=== PATIENT | female | born 1935 | race Two or more races ===

== ENCOUNTER 2019-07-07 20:43 | Inpatient (IN) | payer MEDICARE, BC ==
[~2019-07-07] VITALS: Ht 165.1 cm; Wt 59.2 kg
--- NOTE | 2019-07-07 20:55 | NUR ---
PT BIBRA C/O UNWITNESSED SYNCOPAL EPISODE. PT DENIES HEAD INJURY. PT UNABLE TOR RECALL FULL DETAILS OF THE EVENT. PT AAOX4, HR 42 NOTED, PLACED ON PACER PADS, MD MADE AWARE. PT ENDORSES SOB. RR EVEN AND UNLABORED ON RA W NAD NOTED. PT CONNECTED TO THE MANAGER CASE MANAGEMENT AND POX
[2019-07-07] MEDS ORDERED: FURO-144 PO (20:56)
--- NOTE | 2019-07-07 21:00 | NUR ---
DR LIMA AT BEDSIDE
[2019-07-07 21:11] LABS: BASOPHILS # (AUTO) 0.2 /CMM (0.0-0.2); BASOPHILS % (AUTO) 1.5 % (0.0-2.0); EOSINOPHILS % (AUTO) 0.2 % (0.0-6.0); HEMATOCRIT 41 % (33-45); HEMOGLOBIN 13.2 g/dL (11.5-14.8); LYMPHOCYTES # (AUTO) 0.7 /CMM (0.8-4.8); LYMPHOCYTES % (AUTO) 5.1 % (20.0-44.0); MEAN CORPUSCULAR HGB CONC 32 g/dl (31.0-36.0); MEAN CORPUSCULAR VOLUME 95 fL (82-100); MONOCYTES # (AUTO) 0.5 /CMM (0.1-1.30); MONOCYTES % (AUTO) 3.7 % (2.0-12.0); NEUTROPHILS # (AUTO) 12.6 /CMM (1.8-8.9); NEUTROPHILS % (AUTO) 89.5 % (43.0-81.0); PLATELET COUNT (AUTO) 228 /CMM (150-450); WHITE BLOOD COUNT (AUTO) 14.1 K/uL (4.3-11.0)
--- NOTE | 2019-07-07 21:15 | NUR ---
SPOKED TO ESTELITA WHITE PT'S DAUGHTER FOR UPDATE [phone]
[2019-07-07 21:19] LABS: CALCIUM, SERUM 9.7 mg/dL (8.5-10.1); CARBON DIOXIDE 25 mmol/L (21-32); CHLORIDE 105 mmol/L (98-107); GLUCOSE 144 mg/dL (74-106); POTASSIUM 3.5 mmol/L (3.5-5.1); SODIUM SERUM 144 mmol/L (136-145); UREA NITROGEN, BLOOD 21 mg/dL (7-18)
--- NOTE | 2019-07-07 21:20 | NUR ---
PT IS WHEELED TO CT SCAN VIA ALS PROTOCOL.
[2019-07-07 21:25] LABS: ALANINE AMINOTRANSFERASE 87 U/L (12-78); ALBUMIN 3.5 g/dL (3.4-5.0); ALKALINE PHOSPHATASE 121 U/L (46-116); ASPARTATE AMINOTRANSFERASE 71 U/L (15-37); BILIRUBIN,DIRECT 0.2 mg/dL (0.0-0.2); BILIRUBIN,TOTAL 0.6 mg/dL (0.2-1.0); TOTAL PROTEIN, SERUM 6.6 g/dL (6.4-8.2)
--- NOTE | 2019-07-07 21:25 | NUR ---
XRAY TKN AT RADIOLOGY
--- NOTE | 2019-07-07 21:30 | NUR ---
CALLED RONDA PAGED CAROLYNE ORTIZ
--- NOTE | 2019-07-07 21:31 | NUR ---
ICU 256
--- NOTE | 2019-07-07 21:37 | NUR ---
TROPONIN 0.986 MD MADE AWARE
[2019-07-07] MEDS ORDERED: ASPIRIN 325 MG TABLET ONE (21:57)
[2019-07-07] MEDS ORDERED: ASPIRIN 325 MG TABLET PO SCH (22:00)
--- NOTE | 2019-07-07 22:10 | NUR ---
CONSENT SIGNED FOR TRANSVENOUS PACING. Addendum: 07/07/19 at 2211 by GORDON CONSENT OBTAINED FROM PT FOR TRANSVENOUS PACING
--- NOTE | 2019-07-07 22:18 | NUR ---
DR GRAJEDA AT BEDSIDE
--- NOTE | 2019-07-07 23:08 | NUR ---
PT TRANSFERRED TO ICU 257 IN STABLE CONDITION
[2019-07-07] MEDS ORDERED: MORPHINE SULFATE INJ 4 MG/ML DISP.SYRIN ONE (23:44)
--- NOTE | 2019-07-07 23:53 | NUR ---
SENIOR DATA QUALITY ANALYST. RECEIVED THE PT FROM ER VIA GURAFTAB, PT IS AWAKE, ALERT. FOLLOW COMMANDS. CARPENTER SUPERVISOR SHOWING HEART BLOCK. PT ON ROOM AIR SAT 98%. NO ACUTE DISTRESS NOTED. IV RT HAND 20G. SALINE LOCK. HOB ELEVATED, RT FINGERS SHOWING SHARP BLISTERS OPEN. .SEND THE PT TO OR FOR PACEMAKER PLACEMENT.
[2019-07-08] VITALS (51 sets, daily range): BP systolic 89–164; BP diastolic 32–115
--- NOTE | 2019-07-08 01:09 | NUR ---
SOCIAL SERVICES MANAGER RECEIVED THE PT FROM OR VIS BED, S/P TRANSVENOUS PACEMAKER. RATE IS 80. RT LEG DO NOT BEND.PROCEDURE DONE VIA RT FEMORAL. PLAN TOMORROW PERMANENT PACEMAKER PLACEMENT. VITALS STABLE. WILL CONTINUE TO MONITOR
[2019-07-08] MEDS ORDERED: IV NS 0.9% 1,000 ML IV PRN (01:41)
[2019-07-08] MEDS ORDERED: TEMAZEPAM 15 MG CAPSULE PO PRN (02:00)
[2019-07-08] MEDS ORDERED: ONDANSETRON HCL/PF 4 MG/2 ML VIAL IVP PRN (02:00)
[2019-07-08] MEDS ORDERED: Z GUARD REMEDY 2 OZ OINT TP PRN (02:00)
[2019-07-08] MEDS ORDERED: CEFTRIAXONE 1 G VIAL ONE (03:25)
[2019-07-08] MEDS: CEFTRIAXONE 1 G in IV D5W 50 ML IV SCH (03:27)
--- NOTE | 2019-07-08 04:11 | NUR ---
DATA SERVICES DEVELOPER. PT SLEPT WELL. DURING SHIFT. NO ACUTE DISTRESS NOTED. SAT WITH ROOM AIR. 96%.PARAPROFESSIONAL EDUCATION ASSISTANT SHOWING V PACING. SURGICAL SITE CLEAN AND DRY. NO BLEEDING NOTED. HOB ELEVATED. RT LEG FLAT. NPO. AFTER BREAKFAST. AFEBRILE. WILL CONTINUE TO MONITOR VITALS,
[2019-07-08 04:53] LABS: BASOPHILS % (AUTO) 0.2 % (0.0-2.0); HEMATOCRIT 35 % (33-45); HEMOGLOBIN 12.2 g/dL (11.5-14.8); LYMPHOCYTES # (AUTO) 1.1 /CMM (0.8-4.8); LYMPHOCYTES % (AUTO) 11.8 % (20.0-44.0); MEAN CORPUSCULAR HGB CONC 35 g/dl (31.0-36.0); MEAN CORPUSCULAR VOLUME 98 fL (82-100); MONOCYTES # (AUTO) 0.4 /CMM (0.1-1.30); PLATELET COUNT (AUTO) 207 /CMM (150-450); RED BLOOD CELL COUNT(AUTO) 3.56 MIL/uL (4.0-5.2); WHITE BLOOD COUNT (AUTO) 9.5 K/uL (4.3-11.0)
[2019-07-08 05:07] LABS: CHOLESTEROL 165 mg/dL (<200); HDL CHOLESTEROL 64 mg/dL (40-60); LDL 90 mg/dL (0-99); TRIGLYCERIDES 36 mg/dL (30-150)
[2019-07-08 05:21] LABS: ALBUMIN 3.1 g/dL (3.4-5.0); BILIRUBIN,TOTAL 0.6 mg/dL (0.2-1.0); CALCIUM, SERUM 8.6 mg/dL (8.5-10.1); CREATININE 0.8 mg/dL (0.6-1.3); MAGNESIUM 1.9 mg/dL (1.8-2.4); POTASSIUM 3.5 mmol/L (3.5-5.1); TOTAL PROTEIN, SERUM 5.9 g/dL (6.4-8.2)
[2019-07-08] MEDS: ENOXAPARIN SODIUM 40 MG/0.4 ML DISP.SYRIN SQ SCH (06:36)
--- NOTE | 2019-07-08 06:40 | NUR ---
INSTALLATION MANAGER. WOUND PICTURE TAKEN. .WOUND CONSULTATION ORDERED
--- NOTE | 2019-07-08 07:08 | NUR ---
LOVENOX NOT GIVEN . TODAY SURGERY
[2019-07-08] MEDS: ASPIRIN EC 81 MG TABLET.DR PO SCH (08:21)
[2019-07-08] MEDS ORDERED: MIRT7.5T10 PO (08:27)
[2019-07-08] MEDS ORDERED: DICL100G34 TD (08:27)
[2019-07-08] MEDS ORDERED: ALPR0.255 PO (08:27)
--- NOTE | 2019-07-08 08:36 | NUR ---
WOUND CARE CONSULT: LIMITED ASSESSMENT TODAY DUE TO PT UNABLE TO BE TURNED AT THIS TIME. RT INDEX FINGER HEALING BURN NOTED. PT STATES WAS USING ANTIBIOTIC OINTMENT AT HOME. RECOMMENDATIONS MADE FOR WOUND CARE AND SKIN PROTECTION. DISCUSSED WITH NURSING STAFF. PT TO BE TURNED AND REPOSITIONED EVERY 2 HRS PT CONDITION PERMITS. WILL SEE PRN. CURRENT LENY SCORE IS 15. MD IN AGREEMENT WITH PLAN OF CARE. Addendum: 07/08/19 at 0838 by CHRISTOPHER CORNELL WNDNU Amended: Links added.
[2019-07-08] MEDS: NEOMY SULF/BACITRAC ZN/POLY 15 GM TUBE TP SCH ×2 (09:00→17:00)
[2019-07-08] MEDS ORDERED: IOHEXOL 240MG/ML 50 ML IV ONE (13:31)
[2019-07-08] MEDS ORDERED: LIDOCAINE HCL/MPF 1% 30 ML VIAL IJ ONE (13:32)
[2019-07-08] MEDS ORDERED: ANESTHESIA TRAY IN PYXIS 1 EA TRAY MC ONE (13:33)
[2019-07-08] MEDS ORDERED: VANCOMYCIN HCL 1 GM in IV D5W 260 ML IV ONE (14:00)
[2019-07-08] MEDS ORDERED: CEFAZOLIN 1 GM ONE ×2 (15:42→16:35)
[2019-07-08 17:01] LABS: APPEARANCE,URINE CLEAR (CLEAR); BILIRUBIN,URINE NEGATIVE (NEGATIVE); BLOOD, URINE MODERATE Ery/uL (NEGATIVE); COLOR,URINE YELLOW (YELLOW); KETONES,URINE 15 (NEGATIVE); LEUKOCYTE ESTERASE ,URINE NEGATIVE (NEGATIVE); NITRITE, URINE NEGATIVE (NEGATIVE); PROTEIN,URINE 100 mg/dl (NEGATIVE); UGLUCOSE NEGATIVE (NEGATIVE); UROBILINOGEN,URINE 0.2 EU/dL (0.2)
[2019-07-08 17:07] LABS: BACTERIA,URINE Few /HPF (None Seen); HYALINE CASTS, URINE Few /LPF (None Seen); RBC,URINE 21-50 /HPF (0-2); SQUAMOUS EPITHELIAL CELL,UR Few /HPF (None Seen); WBC,URINE 0-2 /HPF (0-3)
[2019-07-08] MEDS ORDERED: FENTANYL PF 100MCG/2ML AMPUL ONE (18:03)
[2019-07-08] MEDS ORDERED: MIDAZOLAM HCL 2 MG/2ML VIAL IV ONE (19:00)
--- NOTE | 2019-07-08 19:24 | NUR ---
DEPUTY FIRE MARSHAL closing Received patient back from surgery, s/p L CW pacemaker + temp pace maker removal. Oriented to self only, previously was x4. Attached to 3L O2 via face mask. post pacemaker, xray showed pneumothorax. Dr. Amin thoracic surgery and Dr. Dominique electrophysiology at bedside. Consent for chest tube obtained from Sneha, patient's daughter. Patient tolerated chest tube insertion. See vitals. Post chest tube insertion xray ordered. Sand bag on R groin. Post op orders endorsed to night RN. Patient placed in restraints due to active pulling. Addendum: 07/08/19 at 1933 by MAURY BISHOP RN chest tube attached to continuous suction. working. no bubbling
--- NOTE | 2019-07-08 19:30 | NUR ---
RN OPENING NOTE: Received pt in bed s/p left CW pacemaker. A&Ox1. On 3L/min O2 via face mask. Has chest tube placed in left chest. On bilateral SWR for safety. Has IV site on right hand #20 and left hand #20 w/ NS running at 60cc/hr. Lines patent and flushed. Dressings c/d/i. Has sandbag on R groin. Safety measures in place. Will continue to monitor.
[2019-07-08 21:06] LABS: BASOPHILS % (AUTO) 0.1 % (0.0-2.0); HEMATOCRIT 33 % (33-45); LYMPHOCYTES # (AUTO) 0.7 /CMM (0.8-4.8); LYMPHOCYTES % (AUTO) 4.9 % (20.0-44.0); MEAN CORPUSCULAR HGB CONC 34 g/dl (31.0-36.0); MEAN CORPUSCULAR VOLUME 98 fL (82-100); MONOCYTES # (AUTO) 0.8 /CMM (0.1-1.30); MONOCYTES % (AUTO) 5.2 % (2.0-12.0); NEUTROPHILS # (AUTO) 13.5 /CMM (1.8-8.9); NEUTROPHILS % (AUTO) 89.8 % (43.0-81.0); PLATELET COUNT (AUTO) 182 /CMM (150-450); RED BLOOD CELL COUNT(AUTO) 3.33 MIL/uL (4.0-5.2); WHITE BLOOD COUNT (AUTO) 15.1 K/uL (4.3-11.0)
[2019-07-08] MEDS: ACETAMINOPHEN 325 MG TABLET PO PRN (22:20)
[2019-07-09] VITALS (46 sets, daily range): BP systolic 115–170; BP diastolic 47–129
--- NOTE | 2019-07-09 01:29 | NUR ---
RN NOTE: Scott Lozada QUALITY CONTROL COORDINATOR at bedside. Pt A&Ox4, removed restraints, monitoring. Pt's BP noted at 170/70. Received order for Hydralazine 25mg PO Q4H PRN. Orders noted and carried out. order desk caller pharmacy called to verify order.
[2019-07-09] MEDS: hydrALAZINE HCL 25 MG TABLET PO PRN (01:47)
[2019-07-09] MEDS: CEFTRIAXONE 1 G in IV D5W 50 ML IV SCH (02:37)
[2019-07-09 04:31] LABS: BASOPHILS % (AUTO) 0.2 % (0.0-2.0); HEMATOCRIT 30 % (33-45); HEMOGLOBIN 10.1 g/dL (11.5-14.8); LYMPHOCYTES % (AUTO) 7.5 % (20.0-44.0); MEAN CORPUSCULAR HGB CONC 34 g/dl (31.0-36.0); MEAN CORPUSCULAR VOLUME 99 fL (82-100); MONOCYTES # (AUTO) 0.9 /CMM (0.1-1.30); MONOCYTES % (AUTO) 6.7 % (2.0-12.0); NEUTROPHILS # (AUTO) 11.4 /CMM (1.8-8.9); NEUTROPHILS % (AUTO) 85.6 % (43.0-81.0); PLATELET COUNT (AUTO) 172 /CMM (150-450); RED BLOOD CELL COUNT(AUTO) 3.05 MIL/uL (4.0-5.2); WHITE BLOOD COUNT (AUTO) 13.3 K/uL (4.3-11.0)
[2019-07-09 04:50] LABS: CREATININE 0.8 mg/dL (0.6-1.3); MAGNESIUM 1.9 mg/dL (1.8-2.4); PHOSPHORUS 3.2 mg/dL (2.5-4.9); POTASSIUM 3.7 mmol/L (3.5-5.1)
[2019-07-09 05:07] LABS: THYROID STIMULATING HORMONE 0.4 uIU/mL (0.358-3.74)
--- NOTE | 2019-07-09 07:13 | NUR ---
RN CLOSING NOTE: Pt resting in bed. A&Ox4. Removed restraints during shift. On 3L/min NC tolerating well. On tele monitor showing V pacing. Chest tube patent and draining. IV sites patent and flushed. Dressings c/d/i. Safety measures in place. Endorsed to AM nurse for MARIA DEL CARMEN.
[2019-07-09] MEDS ORDERED: DICLOFENAC TOPICAL 100 GM GEL..GM. TP PRN (08:00)
[2019-07-09] MEDS ORDERED: ALPRAZOLAM 0.25 MG TABLET PO PRN (08:00)
--- NOTE | 2019-07-09 08:00 | NUR ---
ICU/RN INITIAL NOTES,AM RECEIVED WRITTEN REPORT FROM NIGHT NURSE. PT ALERT, AWAKE, ORIENTED, FOLLOWS COMMANDS. PT ON ROOM AIR, NO DISTRESS NOTED. S/P LCW PACEMAKER AND LEFT SIDED CHEST TUBE TO WATER SEAL. OUTPUT NOTED, WILL DOCUMENT. PT ON TELE, VPACING. SKIN INTACT, PT CONTINENT ON DIAPER NOW. PIV'S PATENT AND INTACT, IVF INFUSING ORDERED. ALL NEEDS WILL BE ATTENDED TO, SAFETY MEASURES TAKEN, BED IN LOW POSITION, SIDE RAILS UP, CALL LIGHT WITHIN REACH. WILL CONTINUE CARE.
[2019-07-09] MEDS: ENOXAPARIN SODIUM 40 MG/0.4 ML DISP.SYRIN SQ SCH (08:18)
[2019-07-09] MEDS: ASPIRIN EC 81 MG TABLET.DR PO SCH (08:18)
[2019-07-09] MEDS: FUROSEMIDE 40 MG TABLET PO SCH (08:19)
[2019-07-09] MEDS: NEOMY SULF/BACITRAC ZN/POLY 15 GM TUBE TP SCH ×2 (08:20→17:03)
[2019-07-09] MEDS: ACETAMINOPHEN 325 MG TABLET PO PRN ×2 (08:26→12:59)
--- NOTE | 2019-07-09 09:20 | NUR ---
ICU/RN: AT BEDSIDE. PT ASSESSED. ALL QUESTIONS ANSWERED. PER MD PT IS TO STAY IN ICU OVERNIGHT FOR CLOSE MONITORING OF LEFT CW PACEMAKER AND LEFT CHEST TUBE. WILL CONTINUE TO MONITOR AND ASSESS.
--- NOTE | 2019-07-09 10:45 | NUR ---
ICU/RN: PHYSICAL THERAPY AT BEDSIDE. PT SITTING UP, DANGLED LEGS. TOLERATING WELL WILL CONTINUE
--- NOTE | 2019-07-09 14:20 | NUR ---
ICU/RN: PER CHEST XRAY CHEST TUBE KINKED. , AND AWARE. NO NEW ORDERS. OUTPUT NOTED, NO BUBBLING/AIR LEAK
--- NOTE | 2019-07-09 18:48 | NUR ---
ICU/RN: ENDING NOTES,AM WRITTEN REPORT PREPARED FOR IMPREGNATOR RN. PT ALERT, AWAKE, FOLLOWS COMMANDS. ON ROOM AIR, NO DISTRESS. VPACING ON TELE, PERMANENT PACEMAKER PLACES YESTERDAY. LEFT CHEST TUBE IN PLACE 90ML OUTPUT NOTED DURING SHIFT. SOME PAIN/TINGLING NOTED IN LEFT ARM, MDS AWARE. XRAY, VENOUS STUDY AND US NEGATIVE. PT ABLE TO USE BEDPAN, CONTINENT. ALL NEEDS ATTENDED TO,SAFETY MEASURES TAKEN, BED IN LOW POSITION, SIDE RAILS UP, CALL LIGHT WITHIN REACH. BED BATH GIVEN, LINENS CHANGED. WILL CONTINUE CARE. PT ON CLEAR LIQUID DIET, WILL ADVANCE TOLERATED.
--- NOTE | 2019-07-09 20:00 | NUR ---
Received patient A/OX4.VSS.SR with occasional V-paced Rhythm.S/P PPM placement left upper chest for complete heart block.Dressing clean dry and intact.Respiration even and unlabored on RA saturation 93%-96%.Left Chest tube for pneumothorax at 20 cm continuous suction draining serosanguineous output.No air leaks.Denies chest Safety precaution maintained with call light at bedside.Continue monitoring.
[2019-07-09] MEDS: MIRTAZAPINE 15 MG TABLET PO SCH (21:35)
[2019-07-10] VITALS (20 sets, daily range): BP systolic 117–171; BP diastolic 49–97
[2019-07-10] MEDS: CEFTRIAXONE 1 G in IV D5W 50 ML IV SCH (02:01)
--- NOTE | 2019-07-10 04:00 | NUR ---
Patient confused trying to get out of bed pulled out BP cuff,Pulse ox and gown off. Patient verbalized wants to call her mother and wants to get out of here.Wants to talk to her doctor.Explained to patient that its only 0400 in the morning and the doctor will be here at 0800 this morning.Asked help from Kvng matta RN to have patient situated in bed.Explained to patient that she can not get out of bed for she has a chest tube connected to suction and cannot lift her left arm.She has a new permanent pacemaker placed 2 days ago.Once situated in bed gave her cell phone to call her family. Instead she called 911 and told the police that she is held against her will.Explained to police inspector that patient is confused and updated of patient status.Patient reoriented multiple times of place time and situation why she is here.Fall precaution maintained. Bed low,locked,side rails up x3.Bed alarm on,call light at bedside.Closely monitored.
--- NOTE | 2019-07-10 04:30 | NUR ---
Patient pulled out her diaper and throw it to the floor.Reminded patient that she cannot do that we are observing infection control.
[2019-07-10] MEDS: hydrALAZINE HCL 25 MG TABLET PO PRN ×2 (05:08→11:12)
--- NOTE | 2019-07-10 05:08 | NUR ---
Patient BP 170/85 offered Apresoline tab po but refused.Resting in bed in no acute distress.
--- NOTE | 2019-07-10 07:14 | NUR ---
Patient resting on no acute distress.VSS.SR.Incontinent of urine and ask bedpan. Perineal hygiene done and linens changed.Repositioned to comfort.Endorsed to day shift for continuity of care.
--- NOTE | 2019-07-10 07:15 | NUR ---
HEMATOLOGIST OPENING NOTES RECEIVED PATIENT IN BED, A/O X4. VERBALLY RESPONSIVE AND ABLE TO MAKE NEEDS KNOWN. DENIES ANY PAIN BUT STATED OF FEELING SORE ON L ARM. ON ROOM AIR, TOLERATING WELL. NO SOB NOTED. IV ACCESS ON R AC NOT INTACT,WILL REMOVED. L FOREARM, INTACT, PATENT AND FLUSHED WELL. CHEST TUBE PRESENT, DRAINING SEROSANGUINEOUS OUTPUT. NO AIR LEAKS. SAFETY MEASURES IN PLACE, CALL LIGHT WITHIN REACH. WILL CONTINUE TO MONITOR.
[2019-07-10] MEDS: ASPIRIN EC 81 MG TABLET.DR PO SCH (08:20)
[2019-07-10] MEDS: FUROSEMIDE 40 MG TABLET PO SCH (08:20)
[2019-07-10] MEDS: ENOXAPARIN SODIUM 40 MG/0.4 ML DISP.SYRIN SQ SCH (08:50)
[2019-07-10] MEDS: NEOMY SULF/BACITRAC ZN/POLY 15 GM TUBE TP SCH ×2 (09:32→17:15)
--- NOTE | 2019-07-10 10:35 | NUR ---
MEDICAL STAFF CREDENTIALING COORDINATOR NOTES DR HALEY AT BEDISED, DISCUSSED PLAN OF CARE WITH PATIENT AND CHEST TUBE WAS REMOVED BY MD AND ORDERED STAT CXR.
--- NOTE | 2019-07-10 11:49 | NUR ---
HEAD BUTLER NOTES INFORMED DR BARRIGA REGARDING THE RECOMMENDATION OF DR HARRELL THAT PT IS OK TO TRANSFER TO TELE BUT PER DR BARRIGA TO LET DR. MARTINES DECIDE. CHARGE NURSE MADE AWARE.
[2019-07-10] MEDS ORDERED: ZOLPIDEM TARTRATE 5 MG TABLET PO PRN (17:30)
--- NOTE | 2019-07-10 18:00 | NUR ---
INSURANCE COMMISSIONER NOTES REPORT GIVEN TO ANMOL KELLEY IN MEDSURG/TELE . PT WILL BE IN ROOM 311-2
--- NOTE | 2019-07-10 18:45 | NUR ---
CERTIFIED FLIGHT INSTRUCTOR NOTES TRANSFERRED PT VIA ACLS PROTOCOL. V/S STABLE, IN NO APPARENT DISTRESS NOTED. ENDORSED TO RN NINMYRTLE. HANDS OFF.
--- NOTE | 2019-07-10 19:06 | NUR ---
QUALITY ASSURANCE MONITOR FINAL NOTES PATIENT RECEIVED AWAKE AND ALERT X4, NO RESPIRATORY DISTRESS, NO C/O PAIN AT THIS TIME. GAVE ONCOMING NURSE REPORT OF TRANSFER FROM ICU.
--- NOTE | 2019-07-10 19:10 | NUR ---
TUBE SPLICER PM OPENING NOTES REPORT RECIEVED FROM GWEN COREA. PATIENT RECEIVED AWAKE AND ALERT X4, NO RESPIRATORY DISTRESS, NO C/O PAIN AT THIS TIME. TELE APPLIED. VITAL SIGNS TO BE TAKEN BY TRIPOLER PER ROUTINE TIME. PATIENT IS SR IN THE 80S NO VISIBLE CAPTURE OF PACEMAKER. DENIES DISTRESS. OR SOB. WILL CONT TO MONITOR.
[2019-07-10 21:19] LABS: BASOPHILS # (AUTO) 0.1 /CMM (0.0-0.2); BASOPHILS % (AUTO) 0.6 % (0.0-2.0); EOSINOPHILS % (AUTO) 0.2 % (0.0-6.0); HEMATOCRIT 27 % (33-45); HEMOGLOBIN 9.1 g/dL (11.5-14.8); LYMPHOCYTES % (AUTO) 20.8 % (20.0-44.0); MEAN CORPUSCULAR HGB CONC 33 g/dl (31.0-36.0); MEAN CORPUSCULAR VOLUME 95 fL (82-100); MONOCYTES % (AUTO) 10.5 % (2.0-12.0); NEUTROPHILS # (AUTO) 6.6 /CMM (1.8-8.9); NEUTROPHILS % (AUTO) 67.9 % (43.0-81.0); PLATELET COUNT (AUTO) 172 /CMM (150-450); RED BLOOD CELL COUNT(AUTO) 2.87 MIL/uL (4.0-5.2); WHITE BLOOD COUNT (AUTO) 9.8 K/uL (4.3-11.0)
[2019-07-10] MEDS: MIRTAZAPINE 15 MG TABLET PO SCH (21:35)
[2019-07-10 22:04] LABS: CALCIUM, SERUM 7.8 mg/dL (8.5-10.1); CREATININE 0.7 mg/dL (0.6-1.3); MAGNESIUM 1.8 mg/dL (1.8-2.4); PHOSPHORUS 1.9 mg/dL (2.5-4.9)
[2019-07-10 22:08] LABS: POTASSIUM 2.4 mmol/L (3.5-5.1)
[2019-07-10] MEDS: POTASSIUM CHLORIDE 20 MEQ TAB.PRT.SR PO SCH (23:06)
[2019-07-11] VITALS: BP 145/84
[2019-07-11] MEDS: POTASSIUM CHLORIDE 20 MEQ TAB.PRT.SR PO SCH (01:21)
[2019-07-11 04:00] VITALS: BP 141/69
--- NOTE | 2019-07-11 07:01 | NUR ---
TUGBOAT OPERATOR PM CLOSING NOTES PATIENT IN BED AWAKEAND ALERT ORIENTED X4, REPORTS SHE WAS ABLE TO GET SOME SLEEP LAST NIGHT. DENIES FEELING DIZZY. PT IN NO RESPIRATORY DISTRESS ON RA, NO C/O PAIN AT THIS TIME. PATIENT IS SR IN THE 80S NO VISIBLE CAPTURE OF PACEMAKER. DENIES DISTRESS. OR SOB. WILL ENDORSE TO DAY SHIFT FOR MARIA DEL CARMEN.
--- NOTE | 2019-07-11 07:30 | NUR ---
PT RECEIVED RESTING COMFORTABLY IN BED WITH EYES CLOSED. NO S/S OR C/O PAIN OR DISTRESS NOTED. SIDE RAILS UP X2, CALL LIGHT LEFT WITHIN REACH. WILL CONTINUE PLAN OF CARE.
[2019-07-11] MEDS: ENSURE ENLIVE CHOC 237 ML CAN PO SCH ×2 (08:00→18:03)
[2019-07-11 08:10] VITALS: BP 157/71
[2019-07-11] MEDS: FUROSEMIDE 40 MG TABLET PO SCH (08:59)
[2019-07-11] MEDS: ASPIRIN EC 81 MG TABLET.DR PO SCH (08:59)
[2019-07-11] MEDS: ENOXAPARIN SODIUM 40 MG/0.4 ML DISP.SYRIN SQ SCH (09:00)
[2019-07-11] MEDS: NEOMY SULF/BACITRAC ZN/POLY 15 GM TUBE TP SCH ×2 (09:01→18:05)
[2019-07-11 09:12] LABS: BASOPHILS # (AUTO) 0.1 /CMM (0.0-0.2); BASOPHILS % (AUTO) 0.6 % (0.0-2.0); EOSINOPHILS % (AUTO) 1.3 % (0.0-6.0); HEMATOCRIT 27 % (33-45); HEMOGLOBIN 9.8 g/dL (11.5-14.8); LYMPHOCYTES # (AUTO) 1.5 /CMM (0.8-4.8); LYMPHOCYTES % (AUTO) 17.3 % (20.0-44.0); MEAN CORPUSCULAR HGB CONC 36 g/dl (31.0-36.0); MEAN CORPUSCULAR VOLUME 98 fL (82-100); MONOCYTES # (AUTO) 0.8 /CMM (0.1-1.30); MONOCYTES % (AUTO) 9.4 % (2.0-12.0); NEUTROPHILS # (AUTO) 6.1 /CMM (1.8-8.9); NEUTROPHILS % (AUTO) 71.4 % (43.0-81.0); PLATELET COUNT (AUTO) 186 /CMM (150-450); RED BLOOD CELL COUNT(AUTO) 2.79 MIL/uL (4.0-5.2); WHITE BLOOD COUNT (AUTO) 8.5 K/uL (4.3-11.0)
[2019-07-11 09:20] LABS: CALCIUM, SERUM 8.2 mg/dL (8.5-10.1); CREATININE 0.6 mg/dL (0.6-1.3); PHOSPHORUS 1.6 mg/dL (2.5-4.9); POTASSIUM 3.4 mmol/L (3.5-5.1)
[2019-07-11] MEDS ORDERED: K PHOS NEUTRAL 250 MG TABLET PO ONE (13:00)
[2019-07-11 16:03] VITALS: BP 121/58
[2019-07-11] MEDS: ACETAMINOPHEN 325 MG TABLET PO PRN (18:01)
--- NOTE | 2019-07-11 19:00 | NUR ---
CHANGE OF SHIFT REPORT PT RESTING COMFORTABLY IN BED. NO S/S OR C/O PAIN OR DISTRESS NOTED. SIDE RAILS UP X2, CALL LIGHT LEFT WITHIN REACH. PT KEPT CLEAN, DRY, AND COMFORTABLE. NO SIGNIFICANT CHANGES SINCE PREVIOUS SHIFT.
[2019-07-11 20:00] VITALS: BP 142/55
--- NOTE | 2019-07-11 20:00 | NUR ---
RN NOTES RECEIVED PT. AWAKE ON BED,A/OX3, DRESSING ON THE LEFT UPPER ARM (S/P PACEMAKER PLACEMENT) DRY AND INTACT, SHOULDER SLING IN PLACE, DENIES PAIN, NO SOB, CALL LIGHT WITHIN REACH, [id number], CONTINUE TO MONITOR
[2019-07-11] MEDS: MIRTAZAPINE 15 MG TABLET PO SCH (22:50)
--- NOTE | 2019-07-12 06:32 | NUR ---
RN NOTES AWAKE, MORNING CARE RENDERED, DENIES PAIN, NO SOB, DRESSING ON THE LEFT UPPER ARM DRY AN INTACT, PT. NEEDS ATTENDED
[2019-07-12 06:41] LABS: BASOPHILS % (AUTO) 0.6 % (0.0-2.0); EOSINOPHILS % (AUTO) 4.1 % (0.0-6.0); HEMATOCRIT 27 % (33-45); HEMOGLOBIN 9.5 g/dL (11.5-14.8); LYMPHOCYTES # (AUTO) 2.2 /CMM (0.8-4.8); LYMPHOCYTES % (AUTO) 25.4 % (20.0-44.0); MEAN CORPUSCULAR HGB CONC 35 g/dl (31.0-36.0); MEAN CORPUSCULAR VOLUME 98 fL (82-100); MONOCYTES # (AUTO) 0.8 /CMM (0.1-1.30); MONOCYTES % (AUTO) 9.6 % (2.0-12.0); NEUTROPHILS # (AUTO) 5.2 /CMM (1.8-8.9); NEUTROPHILS % (AUTO) 60.3 % (43.0-81.0); PLATELET COUNT (AUTO) 195 /CMM (150-450); RED BLOOD CELL COUNT(AUTO) 2.77 MIL/uL (4.0-5.2); WHITE BLOOD COUNT (AUTO) 8.6 K/uL (4.3-11.0)
[2019-07-12 07:13] LABS: CALCIUM, SERUM 7.9 mg/dL (8.5-10.1); CREATININE 0.6 mg/dL (0.6-1.3); MAGNESIUM 2.1 mg/dL (1.8-2.4); PHOSPHORUS 3.1 mg/dL (2.5-4.9); POTASSIUM 3.3 mmol/L (3.5-5.1)
[2019-07-12 08:00] VITALS: BP 136/56
[2019-07-12] MEDS: ASPIRIN EC 81 MG TABLET.DR PO SCH (08:28)
[2019-07-12] MEDS: FUROSEMIDE 40 MG TABLET PO SCH (08:28)
[2019-07-12] MEDS: ENOXAPARIN SODIUM 40 MG/0.4 ML DISP.SYRIN SQ SCH (08:40)
[2019-07-12] MEDS: NEOMY SULF/BACITRAC ZN/POLY 15 GM TUBE TP SCH ×2 (08:40→18:05)
[2019-07-12] MEDS: ENSURE ENLIVE CHOC 237 ML CAN PO SCH ×2 (08:41→18:05)
[2019-07-12] MEDS ORDERED: POTASSIUM CHLORIDE 20 MEQ TAB.PRT.SR PO ONE (09:00)
[2019-07-12] MEDS: ACETAMINOPHEN 325 MG TABLET PO PRN (11:35)
[2019-07-12] MEDS ORDERED: ACET325T53 PO (14:50)
[2019-07-12] MEDS ORDERED: ASPI-1152 PO (14:50)
[2019-07-12 16:00] VITALS: BP 144/63
[2019-07-12 20:00] VITALS: BP 127/59
--- NOTE | 2019-07-12 20:09 | NUR ---
MS RN OPENING NOTES PATIENT RECEIVED RESTING IN BED, A/O X 4. STABLE ON RA WITH BREATHING EVEN AND UNLABORED, NO SOB NOTED. NO SIGNS OF ACUTE DISTRESS. NO COMPLAINTS OF PAIN OR DISCOMFORT AT THE MOMENT. IV LOCATED ON LA FA #20 SL. SHOULDER SLING ON L ARM PLACED. SAFETY PRECAUTIONS IN PLACE WITH BED IN LOWEST POSITION, CALL LIGHT WITHIN REACH, BREAKS ON, SIDE RAILS UP. WILL CONTINUE TO MONITOR THROUGHOUT THE SHIFT.
[2019-07-12] MEDS: MIRTAZAPINE 15 MG TABLET PO SCH (22:04)
--- NOTE | 2019-07-13 06:53 | NUR ---
MS RN CLOSING NOTES PATIENT RESTING IN BED, A/O X 4. STABLE ON RA WITH BREATHING EVEN AND UNLABORED, NO SOB NOTED. NO SIGNS OF ACUTE DISTRESS. NO COMPLAINTS OF PAIN OR DISCOMFORT AT THE MOMENT. IV LOCATED ON LA FA #20 SL. SHOULDER SLING ON L ARM PLACED. SAFETY PRECAUTIONS IN PLACE WITH BED IN LOWEST POSITION, CALL LIGHT WITHIN REACH, BREAKS ON, SIDE RAILS UP. ALL NEEDS ATTENDED TO. WILL ENDORSE TO ONCOMING SHIFT ABOUT MARIA DEL CARMEN.
[2019-07-13 08:00] VITALS: BP 142/61
[2019-07-13] MEDS: ENSURE ENLIVE CHOC 237 ML CAN PO SCH (08:00)
--- NOTE | 2019-07-13 08:00 | NUR ---
m/s school inspector: initial assessment received pt in bed awake, a/ox4. no c/o pain or any discomfort. s/p pacemaker. dressing intact. denies dizziness, gomes, or n/v/d. instructed to call for assistance. will continue to monitor.
[2019-07-13] MEDS: ACETAMINOPHEN 325 MG TABLET PO PRN (08:40)
[2019-07-13] MEDS: FUROSEMIDE 40 MG TABLET PO SCH (08:40)
[2019-07-13] MEDS: ASPIRIN EC 81 MG TABLET.DR PO SCH (08:41)
[2019-07-13] MEDS: ENOXAPARIN SODIUM 40 MG/0.4 ML DISP.SYRIN SQ SCH (08:45)
[2019-07-13] MEDS: NEOMY SULF/BACITRAC ZN/POLY 15 GM TUBE TP SCH (08:46)
--- NOTE | 2019-07-13 10:00 | NUR ---
m/s heel dipper: md visit seen and examined by kwame hall (acnp). pt still undecided on where to go, family will call case management once they made up their mind. no distress noted. will continue to monitor.
--- NOTE | 2019-07-13 12:00 | NUR ---
m/s waiter waitress: notes pt decided to go to [facility] vs. home. case management made aware. kwame hall (acnp) notified and made aware. pt to go to [facility] this afternoon.
--- NOTE | 2019-07-13 13:15 | NUR ---
m/s flat ironer: notes discharge instructions given to pt and verbalized understanding. pt called kesha ([id number]) and aware of d'c to [facility]. also left message to kesha (dtr-in-law). awaiting cook pickled meat. pt aware.
--- NOTE | 2019-07-13 13:25 | NUR ---
M/S VAT HOUSE SUPERVISOR: NOTES REPORT GIVEN TO SHIMON (RN) AT [facility] FOR CONTINUITY OF CARE.
--- NOTE | 2019-07-13 14:20 | NUR ---
m/s child care centre manager: notes f/u made to case management and informed them that pt's picking table worker still not here. case management will f/u with the ambulance.
--- NOTE | 2019-07-13 14:30 | NUR ---
m/s power line installer and repairer: notes ambulance here and report given to one of the crew. h/l removed with tip intact with no swelling, no redness, and no bleeding noted.
--- NOTE | 2019-07-13 14:37 | NUR ---
m/s assistant customer service manager: discharged discharged to [facility] via ambulance in stable condition with all valuables.
[2019-07-13 14:41] LABS: CALCIUM, SERUM 9.1 mg/dL (8.5-10.1); CARBON DIOXIDE 32 mmol/L (21-32); CHLORIDE 101 mmol/L (98-107); GLUCOSE 132 mg/dL (74-106); POTASSIUM 3.5 mmol/L (3.5-5.1); SODIUM SERUM 141 mmol/L (136-145); UREA NITROGEN, BLOOD 15 mg/dL (7-18)
== END 2019-07-13 17:21 | disposition home health service (06) | DRG 242 ==
LOC: ER 20:44 → ICU 21:40 → TELE 07-10 19:03 → MED 07-11 10:56
PROVIDERS: ADMIT Nurse Practitioner Acute Care; ATTEND Registered Nurse
PROC: 5A1223Z Performance of Cardiac Pacing, Continuous (ICD-10-PCS; principal; 2019-07-08)
PROC: 0JH606Z Insertion of Pacemaker, Dual Chamber into Chest Subcutaneous Tissue and Fascia, Open Approach (ICD-10-PCS; 2019-07-08)
PROC: 02H63JZ Insertion of Pacemaker Lead into Right Atrium, Percutaneous Approach (ICD-10-PCS; 2019-07-08)
PROC: 02HK3JZ Insertion of Pacemaker Lead into Right Ventricle, Percutaneous Approach (ICD-10-PCS; 2019-07-08)
PROC: B51N1ZZ Fluoroscopy of Left Upper Extremity Veins using Low Osmolar Contrast (ICD-10-PCS; 2019-07-08)
PROC: 0W9B30Z Drainage of Left Pleural Cavity with Drainage Device, Percutaneous Approach (ICD-10-PCS; 2019-07-09)
DX: I44.2 Atrioventricular block, complete (principal); N17.0 Acute kidney failure with tubular necrosis; I21.A1 Myocardial infarction type 2; I50.32 Chronic diastolic (congestive) heart failure; J93.9 Pneumothorax, unspecified; R65.10 Systemic inflammatory response syndrome (SIRS) of non-infectious origin without acute organ dysfunction; I11.0 Hypertensive heart disease with heart failure; Z79.899 Other long term (current) drug therapy; Z90.49 Acquired absence of other specified parts of digestive tract; Z87.891 Personal history of nicotine dependence; E78.5 Hyperlipidemia, unspecified; R74.0 Nonspecific elevation of levels of transaminase and lactic acid dehydrogenase [LDH]; G47.00 Insomnia, unspecified; D50.0 Iron deficiency anemia secondary to blood loss (chronic); D72.829 Elevated white blood cell count, unspecified; I67.2 Cerebral atherosclerosis; F43.9 Reaction to severe stress, unspecified; F03.90 Unspecified dementia, unspecified severity, without behavioral disturbance, psychotic disturbance, mood disturbance, and anxiety
CPT/HCPCS: 36415; 70450-TC; 71045-TC; 73030-TC; 76700-TC; 76882; 80048-TC; 80053-TC; 80061-TC; 80076-TC; 81000-TC; 82962-TC; 83540-TC; 83735-TC; 83880; 84100-TC; 84443-TC; 84484-TC; 85025-TC; 85730-TC; 87040-TC; 87086-TC; 93307-TC; 93880-TC; 93930-TC; 93971-TC; 97110-TC; 97116-TC; 97530-TC; 97535-TC; A6209; A6403; C1751; C1769; C1786; G0378; J0690; J0696; J1100; J1650; J2250; J2270; J3010; J3490; J7060; Q9966

== ENCOUNTER 2021-05-23 12:54 | Emergency (ER) | payer BC, MEDICARE ==
[~2021-05-23] VITALS: Ht 162.6 cm; Wt 56.7 kg
[~2021-05-23 12:54] MED LIST: ACET325T53 PO; ALPR0.255 PO; ASPI-1420 PO; DICL100G34 TD; FURO-144 PO; MIRT7.5T10 PO
[2021-05-23] MEDS ORDERED: LIDOCAINE HCL/PF 1% 30 ML VIAL TP ONE (14:30)
[2021-05-23] MEDS ORDERED: TDAP [DIPH/PERTUSSIS/TET] 0.5 ML VIAL IM ONE ×2 (14:30→15:32)
--- NOTE | 2021-05-23 15:51 | NUR ---
LAC ON LT EYEBROW REPAIRED BY ERMD. APPLIED DRESSING, NO ACTIVE BLEEDING NOTED. Patient discharged to home in stable condition. Written and verbal after care instructions given. Patient verbalizes understanding of instruction.
[2021-05-23 15:53] VITALS: BP 117/89
== END 2021-05-23 15:53 | disposition home or self-care (01) ==
LOC: ER 12:58
DX: S01.112A Laceration without foreign body of left eyelid and periocular area, initial encounter (principal); I11.0 Hypertensive heart disease with heart failure; I50.9 Heart failure, unspecified; Z95.0 Presence of cardiac pacemaker; Z90.89 Acquired absence of other organs; Z60.2 Problems related to living alone; Z79.899 Other long term (current) drug therapy; Z79.82 Long term (current) use of aspirin; W01.0XXA Fall on same level from slipping, tripping and stumbling without subsequent striking against object, initial encounter; Y93.89 Activity, other specified; Y92.481 Parking lot as the place of occurrence of the external cause; Y99.8 Other external cause status
CPT/HCPCS: 12011; 90471; 90715; 99283; J3490